=== PATIENT | male | born 1955 | race Caucasian/White ===

== ENCOUNTER 2020-05-05 07:20 | Day surgery (SDC) | payer MEDICARE, OTHER ==
[2006-10-27 00:07] VITALS: BP 136/72
[~2020-05-05] VITALS: Ht 180.3 cm; Wt 149.0 kg
[2020-05-05] VITALS (13 sets, daily range): BP systolic 145–183; BP diastolic 67–91; PULSE 62–84; TEMP 98
[~2020-05-05 07:20] MED LIST: ALLEGRA 180MG180 MG PO; CATAPRES 0.1MG0.1 MG PO; CELEBREX 200MG200 MG PO; DIOVAN; HCTZ; LIPITOR 40MG TA40 MG PO; LORTAB 7.5/5001 TAB; NEURONTIN600 MG/TAB PO; PERCOCET 325 MG1 TA2 PO; SINGULAIR 110 MG/TAB PO; TAZTIA240 PO
[2020-05-05 08:04] LABS: HEMATOCRIT 44.1 % (42.0-52.0); HEMOGLOBIN 14.7 g/dl (13.5-18.0); MEAN CELL VOLUME 90 fl (80.0-100.0); MEAN CORPUSCULAR HEMOGLOBIN 30 pg (27.0-31.0); MEAN CORPUSCULAR HGB CONC 33 g/dl (33.0-37.0); MEAN PLATELET VOLUME 10.9 fl (7.4-10.4); PLATELET COUNT 176 K/mm3 (130-400); RED BLOOD COUNT 4.89 M/mm3 (4.20-5.60); REDCELL DISTRIBUTION WIDTH-CV 13.2 % (11.5-14.5)
[2020-05-05 08:05] LABS: INR 1.1 (0.8-3.0); PROTHROMBIN TIME 12.6 SECONDS (9.7-12.8)
[2020-05-05 08:08] LABS: PARTIAL THROMBOPLASTIN TIME 35.8 SECONDS (26.0-37.0)
[2020-05-05 08:28] LABS: CREATININE, serum 1.01 (0.66-1.25); POTASSIUM 3.5 mmol/L (3.4-5.0)
--- NOTE | 2020-05-05 09:15 | NUR ---
Pt to procedure,report to Estrelal Moran.
[2020-05-05] MEDS ORDERED: LASIX 40MG TABL40 MG PO (09:22)
[2020-05-05] MEDS ORDERED: PROAIR HFA0.09 MG/AC IH (09:23)
[2020-05-05] MEDS ORDERED: ALBUTEROL0.83 MG/ML IH (09:24)
[2020-05-05] MEDS ORDERED: ASPIRIN 81M81 MG/TA2 PO (09:24)
[2020-05-05] MEDS ORDERED: PULMICORT0.5 MG/2 M IH (09:25)
[2020-05-05] MEDS ORDERED: HYZAAR 50-12.1 UDTAB PO (09:26)
[2020-05-05] MEDS ORDERED: ZADITOR 5 ML5 ML OP (09:26)
[2020-05-05] MEDS ORDERED: DOLOPHINE HCL5 MG PO (09:27)
[2020-05-05] MEDS ORDERED: NITROSTAT0.4 MG/TAB SL (09:31)
[2020-05-05] MEDS ORDERED: NUCYNTA50 MG PO (09:32)
--- NOTE | 2020-05-05 09:34 | NUR ---
SEE MERGE DOCUMENTATION FOR MEDICATION ADMINISTRATION TIMES AND INTRA/POST PROCEDURE SEDATION ASSESSMENTS.
--- NOTE | 2020-05-05 11:25 | NUR ---
Pt returned from procedure,report from BONITA Moran.
--- NOTE | 2020-05-05 15:45 | NUR ---
Discharge instructions given to pt.pt verbalizes understanding.INt removed,catheter tip intact.Pt escorted out via wheelchair by this nurse.pt son is here to pick pt up.
== END 2020-05-05 17:10 | disposition home or self-care (01) ==
LOC: COL.CAR 07:20
PROVIDERS: Internal Medicine Cardiovascular Disease
DX: I08.3 Combined rheumatic disorders of mitral, aortic and tricuspid valves (principal); I25.10 Atherosclerotic heart disease of native coronary artery without angina pectoris; I42.1 Obstructive hypertrophic cardiomyopathy; I48.91 Unspecified atrial fibrillation; J44.9 Chronic obstructive pulmonary disease, unspecified; E78.5 Hyperlipidemia, unspecified; I25.2 Old myocardial infarction; I10 Essential (primary) hypertension; G89.29 Other chronic pain; M54.5 Low back pain; G62.9 Polyneuropathy, unspecified; Z88.8 Allergy status to other drugs, medicaments and biological substances; Z79.82 Long term (current) use of aspirin; Z87.891 Personal history of nicotine dependence
CPT/HCPCS: C1760; C1769; C1894; C8924; J0330; J1644; J2370; J2704; J3010; Q9967